=== PATIENT | male | born 1985 | race Caucasian/White ===

== ENCOUNTER 2018-01-14 13:22 | Emergency (ER) | payer SELFPAY ==
[2018-01-14 13:23] VITALS: BP 144/75; PULSE 120; RESP 16; TEMP 36.7; O2SAT 97; BMI 28.8
--- NOTE | 2018-01-14 14:34 | CT_ITS ---
STUDY: CT ABDOMEN AND PELVIS WITHOUT CONTRAST REASON FOR EXAM: Male, 32 years old. 4 hour history of right flank pain. History of kidney stones. RADIATION DOSAGE (If Supplied By Facility): CTDIvol = ( 8.95 ) mGy, DLP = ( 474.25 ) mGycm TECHNIQUE: Transaxial images were obtained from the dome of the diaphragm to the symphysis pubis without oral contrast, and without intravenous contrast. Sagittal and coronal images were reconstructed. Individualized dose optimization techniques were used for this CT. COMPARISON: Comparison is made with prior study dated February 23, 2017. FINDINGS: The visualized lung bases are unremarkable. The visualized portions of the heart are within normal limits. There is decreased attenuation of the liver consistent with steatosis. Normal gallbladder and extrahepatic biliary system. Normal spleen. Normal pancreas. Normal bilateral adrenal glands. Multiple small right renal calculi. The largest measures 3 mm. 2.5 mm calculus at the level of the right ureterovesical junction as it enters the urinary bladder. This is in keeping with a passing distal right ureteral calculus. Nonobstructive 2.5 mm calculus in the lower pole calyx of the left kidney. Normal visualized stomach. Normal small intestine. Normal colon. The appendix is visualized and appears normal. Normal abdominal aorta. Normal inferior vena cava. Normal retroperitoneum. Normal urinary bladder. There is a left-sided inguinal hernia containing adipose tissue. Normal osseous structures. CT/Abdomen/Pelvis without Cont IMPRESSION: Nonobstructive bilateral renal calculi. 2.5 mm calculus at the right ureterovesical junction as it enters the urinary bladder. Electronically Signed: Neel Browning MD at 15:58 EDT Tel [phone], Service support ,
--- NOTE | 2018-01-14 14:37 | ED.DCSUM_ITS ---
- ER Visit Summary Date of Service: 01/14/18 Chief Complaint: Flank pain History of Present Illness: The patient is a 32 M with right flank pain that started 4 or 5 hours ago. Patient states initially felt the right lower quadrant now has pain in the right CVA area. The history kidney stones with similar symptoms. He has not been able to urinate since onset of symptoms. Physical Examination: Vital signs are significant for heart rate of 120, otherwise unremarkable. Head neck examination is unremarkable. Heart is tachycardic and regular. Lung sounds are clear. Abdomen is soft with mild tenderness in the right lower quadrant. He does have right CVA tenderness as well. Test Results: CBC was a white count 11.4 with normal differential. Chemistry studies are significant only for a BUN of 19. CT flank shows a 2.5 mm calculus the right UVJ as it enters the bladder. Emergency Department Course and Treatment: Patient is given Toradol, morphine, Zofran, and fluids. On repeat evaluation he states his pain was improved but is now returning. An additional dose of morphine is given. Urinalysis shows blood but no sign of acute infection. At this time patient be discharged with prescription for Toradol, Percocet, Zofran. He will be referred to Dr. Mccauley for follow-up. Treatment Plan: [] Disposition: Discharge Impression: Right-sided ureterolithiasis This note was generated with [employer] dictation software. It may contain incorrect words, spelling, and punctuation that were not noted in review of the chart prior to signing ED Disposition - Plan for ED Patient: Chief Complaint: Flank Pain Referrals: Care Physician,No Primary [Primary Care Provider] -
[2018-01-14 15:19] LABS: Anion Gap 6 (5-15); BUN 19 mg/dL (7-18); BUN/Creat Ratio 16.5 RATIO (10-20); Calcium,Total 9.1 mg/dL (8.5-10.1); Chloride 106 mmol/L (98-107); Creatinine, Serum 1.15 mg/dL (0.70-1.30); EST Glomerular Filtration Rate 79 mL/min (>60); Est Glom Filt Rate - Afr Amer 96 mL/min (>60); Estimated Creatinine Clearance 93.93 ml/min; Glucose 106 mg/dL (74-106); Potassium 3.6 mmol/L (3.5-5.1); Sodium Level 140 mmol/L (136-145)
[2018-01-14 15:25] LABS: Absolute Lymphocyte Count 2.68 X10^3/ul (0.83-4.51); Absolute Neutrophil Count 7.4 X10^3/uL (2.0-7.7); Basophil# 0.07 X10^3/uL; Basophil% 0.6 % (0-1); Eosinophil# 0.22 X10^3/uL; Eosinophils% 1.9 % (0-5); Hematocrit 45.2 % (40-54); Hemoglobin 15.8 g/dl (13.0-16.5); Lymphocyte # 2.68 X10^3/ul (4.0); Lymphocyte % 23.6 % (19-41); Mean Corpuscular Hgb 31.3 pg (27.0-32.0); Mean Corpuscular Volume 89.7 fL (80-94); Monocyte# 0.97 X10^3/uL; Monocyte% 8.5 % (0-10); Neutrophil # 7.38 X10^3/uL (2.7-7.7); Platelet Count 192 K/mm3 (150-450); RBC Distribution Width CV 13.4 % (11.6-14.6); RBC Distribution Width SD 43.9 fl (35.1-43.9); Red Blood Count 5.04 M/mm3 (4.6-6.2); White Blood Count 11.4 K/mm3 (4.4-11.0)
[2018-01-14] MEDS: Ondansetron 4 MG/2 ML Vial IV ×2 (15:27→16:50)
[2018-01-14] MEDS: 0.9% Normal Saline 1,000 ML 250 ML IV (15:27)
[2018-01-14] MEDS: Morphine 4 MG/ML Syringe IV ×2 (15:27→16:49)
[2018-01-14] MEDS: Ketorolac 30 MG/ML Syringe IV (15:27)
[2018-01-14 15:29] VITALS: BP 124/95; PULSE 67; RESP 16; O2SAT 9
[2018-01-14 15:31] LABS: POSITIVE COUNT NO; POSITIVE DIFFERENTIAL NO; POSITIVE MORPHOLOGY NO
[2018-01-14 16:58] LABS: Color, Urine Yellow (Yellow); Glucose, Dipstick Normal (Normal); Ketone-Dipstick 5 mg/dl (Negative); Leukocyte Esterase-Dipstick 25 /ul (Negative); Nitrite-Dipstick Negative (Negative); Occult Blood-Urine 250 /ul (Negative); Protein-Dipstick 30 mg/dl (Negative); Specific Gravity, Urine 1.025 (1.002-1.030); Urine Clarity Cloudy (Clear); Urine Urobilinogen 4 mg/dl (Normal)
[2018-01-14 17:03] LABS: Urine Bilirubin Dipstick 1 mg/dL (Negative)
[2018-01-14 17:06] LABS: Bacteria 2+ /hpf (None Seen); Hyaline Cast 0-5 SEEN /lpf (0-5); Mucous, Urine 3+ /hpf (<or=2+); Red Blood Cells-Urine 10-25 SEEN /hpf (0-5); Squamous Epithelial Cells - UA 0-5 SEEN /hpf (0-5); White Blood Cells 0-5 SEEN /hpf (0-5)
--- NOTE | 2018-01-14 17:11 | ED.DEP ---
ED Disposition - Plan for ED Patient: Disposition: Home or Assisted Living Chief Complaint: Flank Pain Instructions: ED Stone Renal W Colic Prescriptions: Oxycodone HCl/Acetaminophen [Percocet 5/325] 1 - 2 tablet PO Q6H PRN PRN 3 Days #12 tablet PRN Reason: Pain Ondansetron [Zofran Odt] 4 mg PO Q8H PRN PRN #10 tab PRN Reason: Nausea Ketorolac [Toradol] 10 mg PO Q6H PRN #14 tab PRN Reason: Pain Referrals: Charles Mccauley MD [STAFF PHYSICIAN] - As Needed
[2018-01-14 17:39] VITALS: BP 143/88; PULSE 70; RESP 16; O2SAT 100
== END 2018-01-14 17:40 | disposition home or self-care (01) ==
PROVIDERS: Emergency Provider Emergency Medicine
DX: N20.1 Calculus of ureter (principal); R00.0 Tachycardia, unspecified; Z79.899 Other long term (current) drug therapy; Z87.442 Personal history of urinary calculi
CPT/HCPCS: 74176; 80048; 81001; 85025; 96361; 96374; 96375; 96376; 99283; J7030; A4216; J2405

== ENCOUNTER 2018-03-27 14:18 | Emergency (ER) | payer SELFPAY ==
[2018-03-27 14:19] VITALS: BP 118/87; PULSE 132; RESP 20; TEMP 36.5; O2SAT 97; BMI 28.6
[2018-03-27 14:27] VITALS: BP 130/91; PULSE 128; RESP 14; O2SAT 97
[2018-03-27 14:50] LABS: Absolute Lymphocyte Count 0.52 X10^3/ul (0.83-4.51); Absolute Neutrophil Count 5.1 X10^3/uL (2.0-7.7); Basophil# 0.03 X10^3/uL; Basophil% 0.5 % (0-1); Eosinophil# 0.07 X10^3/uL; Eosinophils% 1.1 % (0-5); Hematocrit 46.2 % (40-54); Hemoglobin 15.9 g/dl (13.0-16.5); Lymphocyte # 0.52 X10^3/ul (4.0); Lymphocyte % 8.2 % (19-41); Mean Corp Hgb Conc 34.4 g/gl (32-36); Mean Corpuscular Hgb 31.2 pg (27.0-32.0); Mean Corpuscular Volume 90.6 fL (80-94); Mean Platelet Vol. 10.7 fl (6.2-12.0); Monocyte# 0.64 X10^3/uL; Monocyte% 10.1 % (0-10); Neutrophil # 5.09 X10^3/uL (2.7-7.7); Neutrophil % 79.9 % (47-70); Platelet Count 155 K/mm3 (150-450); RBC Distribution Width SD 43.1 fl (35.1-43.9); White Blood Count 6.4 K/mm3 (4.4-11.0)
[2018-03-27 14:55] LABS: Differential Indicated SCAN CRITERIA MET; POSITIVE COUNT NO; POSITIVE DIFFERENTIAL YES; POSITIVE MORPHOLOGY NO
--- NOTE | 2018-03-27 15:00 | RAD_ITS ---
STUDY: X-RAY CHEST REASON FOR EXAM: Male, 32 years old. Muscle aches. TECHNIQUE: PA and lateral views of the chest. COMPARISON: None. FINDINGS: Mild degree of increased markings in the lingular segment of the left upper lobe. Early infiltrate should be ruled out. There is no demonstrated pleural abnormality. Normal size heart. Normal mediastinum and terry. Normal visualized pulmonary arteries. Normal visualized aortic arch and descending thoracic aorta. Normal visualized thoracic spine. Normal visualized ribs, clavicles, and shoulders. There is no demonstrated abnormality of the visualized soft tissue structures of the upper abdomen. RAD/Chest PA and Lateral IMPRESSION: Mild degree of increased markings in the lingular segment of the left upper lobe. Early infiltrate should be ruled out. Electronically Signed: Neel Browning MD at 15:33 EDT Tel [phone], Service support ,
[2018-03-27 15:04] LABS: ALB/GLOB Ratio 1.1 RATIO (0.9-2.4); AST(SGOT) 66 U/L (15-37); Alanine Aminotransfer ALT/SGPT 188 U/L (16-61); Alkaline Phosphatase 68 U/L (45-117); Anion Gap 9 (5-15); BUN 16 mg/dL (7-18); BUN/Creat Ratio 13.4 RATIO (10-20); Calcium,Total 9.3 mg/dL (8.5-10.1); Chloride 101 mmol/L (98-107); Creatinine, Serum 1.19 mg/dL (0.70-1.30); EST Glomerular Filtration Rate 76 mL/min (>60); Est Glom Filt Rate - Afr Amer 92 mL/min (>60); Estimated Creatinine Clearance 90.77 ml/min; Globulin 3.8 g/dL (2.2-4.2); Glucose 135 mg/dL (74-106); Potassium 3.7 mmol/L (3.5-5.1); Protein, Total 7.8 g/dL (6.4-8.2); Sodium Level 135 mmol/L (136-145)
[2018-03-27] MEDS: 0.9% Normal Saline 1,000 ML 1000 ML IV (15:05)
[2018-03-27] MEDS: Ketorolac 30 MG/ML Syringe IV (15:05)
--- NOTE | 2018-03-27 15:38 | ED.DCSUM_ITS ---
- ER Visit Summary Date of Service: 03/27/18 Chief Complaint: Myalgias History of Present Illness: The patient is a 32 M who presents with diffuse body aches. He states that approximately 2 days ago he began to have aching in his thighs and now all of his muscles hurt. He notes sore throat runny nose subjective fever sweats slight cough. He notes nausea but no vomiting or diarrhea. No rashes. He denies any significant exertional workouts or work. He notes his urine is yellow. He is a smoker. Physical Examination: Oral temperature 98.4. Heart rate 128 respirations are 14 pulse ox 97% blood pressure 130/91 Gen: Well-nourished well-developed Head: Normocephalic atraumatic Eyes: Perrl EOMI ENT: TMs clear no rhinorrhea moist mucous membranes Neck: Supple tender anterior lymph nodes no JVD nontender CVS: Regular rate and tachycardic rhythm no murmurs normal S1-S2 Respiratory: No distress clear to auscultation bilaterally chest nontender Abdomen: Soft nontender nondistended normal bowel sounds no masses Back: Nontender Extremity: Nontender no edema Skin: Normal color no rash Neuro: alert orientated ?3 CN II-XII intact normal strength sensation reflexes gait cerebellar Psych: Normal affect normal mood Test Results: CBC chemistries within normal limits. Noted slight elevation of ALT and AST. Chest x-ray is concerning for developing lingular infiltrate Emergency Department Course and Treatment: The patient received IV fluids and Toradol. Patient was started on doxycycline. He will need to follow-up with primary care and will be referred or return if worsening or concerns. Impression: 1. Community acquired pneumonia This note was generated with [employer] dictation software. It may contain incorrect words, spelling, and punctuation that were not noted in review of the chart prior to signing ED Disposition - Plan for ED Patient: Disposition: Home or Assisted Living Chief Complaint: General Illness Instructions: ED Pneumonia Adult Prescriptions: Ibuprofen [Motrin] 800 mg PO TID PRN PRN #20 tab PRN Reason: Fever Doxycycline 100 mg PO BID #14 cap Referrals: All Garcia MD [STAFF PHYSICIAN] - 1 Week if not improving
[2018-03-27] MEDS: 0.9% Normal Saline 1,000 ML 999 ML IV (16:13)
[2018-03-27] MEDS: Acetaminophen 500 MG Tablet 1000 MG PO (16:13)
[2018-03-27 16:33] LABS: CPK Total, Creatine Kinase 75 U/L (39-308)
[2018-03-27 17:03] VITALS: BP 127/88; PULSE 105; RESP 20; O2SAT 97
== END 2018-03-27 17:04 | disposition home or self-care (01) ==
PROVIDERS: Emergency Provider Emergency Medicine
DX: J18.9 Pneumonia, unspecified organism (principal); R74.8 Abnormal levels of other serum enzymes; F17.200 Nicotine dependence, unspecified, uncomplicated
CPT/HCPCS: 71046; 80053; 82550; 85025; 87804; 96361; 96374; 99284; J7030

== ENCOUNTER 2020-10-09 23:59 | Emergency (ER) | payer MEDICAID, SELFPAY ==
[2019-09-24 14:27] VITALS: BMI 26.6
[2020-10-10 00:01] VITALS: BP 123/80; PULSE 86; RESP 24; TEMP 36.8; O2SAT 100; BMI 31.2
[2020-10-10 00:11] VITALS: O2SAT 100
--- NOTE | 2020-10-10 00:12 | RAD_ITS ---
STUDY: X-RAY CHEST REASON FOR EXAM: Male, 35 years old. cough/sob TECHNIQUE: Single AP portable view of the chest. COMPARISON: None. FINDINGS: The lungs are clear and expanded. There is no demonstrated pleural abnormality. Normal size heart. Normal mediastinum and terry. Normal visualized pulmonary arteries. Normal visualized aortic arch and descending thoracic aorta. Normal visualized thoracic spine. Normal visualized ribs, clavicles, and shoulders. There is no demonstrated abnormality of the visualized soft tissue structures of the upper abdomen. RAD/Chest 1 View (Portable) IMPRESSION: Normal x-ray examination of the chest. Electronically Signed: Evonne Saldana MD at 0:54 EDT , Service support ,
--- NOTE | 2020-10-10 00:12 | ED.VIS.DYS ---
History of Present Illness Chief Complaint: Asthma Informant: Patient, EMS Onset: Hours - 1 Activity at onset: Rest, - - gradual onset Quality: Wheezing Current Severity: Gone Maximum Severity: Moderate Worsened by: Coughing Relieved by: Albuterol - neb given by EMS; out of his MDI Associated Symptoms: Cough - [employer]. Negative for: Fever Chest Pain: Tightness - gone now Narrative: Patient states he was at home tonight started coughing, gradually got worse and he became wheezy, noticed that he did not have his albuterol inhaler because it was gone, since his breathing continued to get worse along with tightness in his chest he called EMS, they gave him an albuterol treatment, and now his symptoms are resolved. When asked if he has a history of asthma he is states not that he knows of, but he has had episodes like this in the past. He states there were other people at home with him and no one else had any symptoms. He has never had Covid, nor has he been in contact with anybody with Covid that he knows of recently. He denies getting an itchy rash anywhere or swelling in his hands or feet, he denies any lightheadedness or near syncope or palpitations. He states he basically feels back to normal now. He also has a history of a spontaneous pneumothorax. He denies having any pleuritic sharp pains this time. Past Medical History - Allergies and Home Meds Allergies/Adverse Reactions: Allergies Penicillins Allergy (Verified 09/24/19 14:30) Unknown Primary Care Physician: Care Physician,No Primary [Primary Care Provider] - Past Medical History: None Lives: With Family Smoking Status: Current every day smoker Review of Systems General: Denies: Chills, Fever, Sweats Eyes: Denies: Visual changes - bilaterally, Diplopia ENT: Denies: Rhinorrhea, Sore throat Cardiovascular: Reports: Chest pain. Denies: Palpitations Respiratory: Reports: Dyspnea, Cough. Denies: Sputum Gastrointestinal: Denies: Abdominal pain, Nausea, Vomiting, Diarrhea, Melena, Hematochezia Genitourinary: Denies: Dysuria, Hematuria, Frequency Musculoskeletal: Denies: Back pain, Swelling, Extremity Pain Skin: Denies: Rash, Wounds Neurological: Denies: Headache, Weakness, Numbness Physical Exam Vital Signs/Narrative: Vital Signs Temp Pulse Resp BP Pulse Ox 10/10/20 00:11 100 10/10/20 00:01 98.3 F 86 24 H 123/80 H 100 Inital Vital Signs reviewed: Yes General: Well nourished, Well developed, No Acute Distress Head: Normocephalic, Atraumatic Eyes: Perrl, EOMI ENT: Moist mucous membranes, No rhinorrhea Neck: Supple, Nontender, No lymphadenopathy Cardiovascular: Regular rate, Regular rhythm, No murmurs. Negative for: Tachycardia Respiratory: No distress, CTA bilaterally, Chest nontender, - - Occasional nonproductive cough with bronchospasm Abdomen: Soft, Nontender, Nondistended, Normal bowel sounds Back: Nontender, Normal Inspection Extremities: Nontender, No edema. Negative for: Calf Tenderness Skin: Normal color, No rash, No Trauma Neurological: Alert, Oriented x3, Cranial nerves II-XII grossly intact, Normal Strength, Normal Sensation Psychological: Normal affect, Normal Mood Diagnostic/Tx/Re-eval Chest X-Ray - ED: 1 View, Read by ED Physician, Normal, Heart, Lungs, Mediastinum, Bony Structures, No Acute Disease, No Infiltrates Treatment - Dyspnea: Steroid - Medical Decision Making Patient doing much better now that he had treatment from EMS. Chest x-ray is normal on my interpretation 1 view. We did a Covid test rapid, it returned negative. He was started on prednisone will prescribe him a short burst as well as albuterol inhaler, discussed reasons to return and follow-up. ED Disposition - Plan for ED Patient: Disposition: Home or Assisted Living Diagnosis: Reactive airway disease with wheezing, URI, acute Instructions: ED Bronchitis with Wheezing (Adult) Prescriptions: Prednisone [Deltasone] 40 mg PO DAILY #10 tablet Prescription Printed Albuterol Inhaler [Ventolin Hfa] 1 - 2 puff INHALATION Q4H PRN PRN #1 inhaler PRN Reason: Wheezing Prescription Printed Referrals: Elisa Chvaez [NON-STAFF] - 3-5 Days if not improving
[2020-10-10 00:13] VITALS: O2SAT 98
[2020-10-10] MEDS: predniSONE 20 MG Tablet 40 MG PO (00:15)
[2020-10-10 01:09] VITALS: BP 132/80; PULSE 80; RESP 20; TEMP 36.6; O2SAT 99
== END 2020-10-10 01:41 | disposition home or self-care (01) ==
PROVIDERS: Emergency Provider Emergency Medicine
DX: J45.909 Unspecified asthma, uncomplicated (principal); J06.9 Acute upper respiratory infection, unspecified; Z20.822 Contact with and (suspected) exposure to COVID-19; F17.200 Nicotine dependence, unspecified, uncomplicated; Z79.899 Other long term (current) drug therapy
CPT/HCPCS: 71045; 87426; 99284